=== PATIENT | male | born 1995 | race Hispanic/Latino ===

== ENCOUNTER 2019-09-24 14:23 | Emergency (ER) | payer BC ==
[~2019-09-24] VITALS: Ht 170.2 cm; Wt 72.0 kg
[~2019-09-24 14:23] MED LIST: ALLERGY10 M1 PO; AMOXICILLIN500 MG PO; AMOXICILLIN875 MG PO; AUGMENTIN875TAB PO; CEPHALEXIN500 MG PO; CORTISPORIN OTI10 M2 AS; FLONASE NASAL50 MCG; NAPROSYN500 MG PO; NO HOME MEDS; PAMIX50 MG/ML PO; PHENERGAN12.5 MG/TA PO; ROCEPHIN 2250 MG/VIA IM; ZITHROMAX500 MG PO; ZYRTEC10 M5 PO
[2019-09-24 17:10] VITALS: BP 142/94
== END 2019-09-24 17:16 | disposition home or self-care (01) | DRG 605 ==
LOC: ED 14:23
PROC: 0HQFXZZ Repair Right Hand Skin, External Approach (ICD-10-PCS; principal; 2019-09-24)
DX: S61.214A Laceration without foreign body of right ring finger without damage to nail, initial encounter (principal); S61.216A Laceration without foreign body of right little finger without damage to nail, initial encounter; W25.XXXA Contact with sharp glass, initial encounter; Y93.89 Activity, other specified; Y92.89 Other specified places as the place of occurrence of the external cause; Y99.0 Civilian activity done for income or pay

== ENCOUNTER 2019-11-17 | Emergency (ER) | payer BC ==
[2019-11-17] MEDS ORDERED: BIAXIN500 MG PO (21:13)
[2019-11-17] MEDS ORDERED: NO HOME MEDS (21:50)
== END 2019-11-17 22:02 | disposition home or self-care (01) | DRG 153 ==
DX: J32.9 Chronic sinusitis, unspecified (principal); F17.210 Nicotine dependence, cigarettes, uncomplicated

== ENCOUNTER 2022-09-29 13:57 | Emergency (ER) | payer OTHER, BC ==
[~2022-09-29] VITALS: Ht 170.2 cm; Wt 84.0 kg
[~2022-09-29 13:57] MED LIST changes: +BIAXIN500 MG PO
[2022-09-29] MEDS ORDERED: NAPROXEN500 MG PO (17:11)
[2022-09-29] MEDS ORDERED: METHOCARBAMOL500 MG PO (17:11)
[2022-09-29 17:39] VITALS: BP 149/89
== END 2022-09-29 17:42 | disposition home or self-care (01) | DRG 552 ==
LOC: ED 13:57
DX: S16.1XXA Strain of muscle, fascia and tendon at neck level, initial encounter (principal); F17.200 Nicotine dependence, unspecified, uncomplicated; V49.40XA Driver injured in collision with unspecified motor vehicles in traffic accident, initial encounter

== ENCOUNTER 2022-11-20 13:54 | Emergency (ER) | payer BC ==
[2022-11-20] VITALS (10 sets, daily range): BP systolic 125–145; BP diastolic 77–92
[~2022-11-20] VITALS: Ht 170.2 cm; Wt 84.1 kg
[~2022-11-20 13:54] MED LIST changes: +METHOCARBAMOL500 MG PO; +NAPROXEN500 MG PO
[2022-11-20 14:42] LABS: BASO% 0.4 % (0-3); EOS% 2.8 % (0-8); IMMATURE GRANULOCYTES 0.3 % (0.0-5.0); LYMPH% 24.7 % (15-41); MEAN CORPUSCULAR HGB 23.1 pG CALC (26.0-32.0); MEAN CORPUSCULAR HGB CONC 30.8 g/dL CAL (32.0-36.0); MONO% 10.1 % (2-13); NEUT# 7.31 thou/uL (1.82-7.42); NEUT% 61.7 % (42-76); RED BLOOD COUNT 4.84 mill/uL (4.70-6.10); RED CELL DISTRI WIDTH 19.7 % (11.5-15.5)
[2022-11-20 14:44] LABS: HEMATOCRIT 36.4 % (39.0-50.0); HEMOGLOBIN 11.2 g/dl (14.0-18.0); MEAN CELL VOLUME 75.2 fL CALC (80.0-100.0)
[2022-11-20 14:51] LABS: ALBUMIN 4.7 g/dL (3.2-5.0); ALKALINE PHOSPHATASE 110 u/l (38-126); ANION GAP 12 (6-22 (CALC)); BILIRUBIN, TOTAL 0.3 mg/dL (0.0-1.4); BUN 15 mg/dL (9-20); BUN/CREATININE RATIO 18 (12-20 (CALC)); CARBON DIOXIDE 24 mmol/l (22-30); CHLORIDE 108 mmol/l (95-108); CREATININE 0.8 mg/dL (0.7-1.3); GFR FOR AFR.AMER. > 60 ML/MIN (>=60 (CALC)); GFR OTHER RACES > 60 ML/MIN (>=60 (CALC)); LIPASE 375 u/l (23-300); POTASSIUM 4.3 mmol/l (3.5-5.1); SGOT/AST 31 u/l (17-59); SODIUM 141 mmol/l (137-146); TOTAL PROTEIN 7.7 g/dL (6.3-8.2)
== END 2022-11-20 16:22 | disposition home or self-care (01) | DRG 379 ==
LOC: ED 13:54
PROVIDERS: Family Medicine
DX: K92.1 Melena (principal)

== ENCOUNTER 2023-01-25 22:51 | Emergency (ER) | payer BC ==
[~2023-01-25] VITALS: Ht 170.2 cm; Wt 81.2 kg
[2023-01-26] MEDS ORDERED: AMOXICILLIN500 MG PO (00:36)
[2023-01-26 00:56] VITALS: BP 131/77
== END 2023-01-26 01:38 | disposition home or self-care (01) | DRG 153 ==
LOC: ED 22:51
DX: J02.9 Acute pharyngitis, unspecified (principal); F17.210 Nicotine dependence, cigarettes, uncomplicated; Z20.822 Contact with and (suspected) exposure to COVID-19

== ENCOUNTER 2023-04-11 22:24 | Emergency (ER) | payer BC ==
[2023-04-11] VITALS (7 sets, daily range): BP systolic 121–137; BP diastolic 65–93
[~2023-04-11] VITALS: Ht 170.2 cm; Wt 83.0 kg
[2023-04-11] MEDS ORDERED: AMOXICILLIN500 MG PO (23:37)
== END 2023-04-11 23:55 | disposition home or self-care (01) | DRG 153 ==
LOC: ED 22:24
DX: J02.9 Acute pharyngitis, unspecified (principal); F17.200 Nicotine dependence, unspecified, uncomplicated; Z20.822 Contact with and (suspected) exposure to COVID-19

== ENCOUNTER 2023-06-19 21:29 | Emergency (ER) | payer BC ==
[2023-06-19] VITALS (9 sets, daily range): BP systolic 122–144; BP diastolic 55–89
[~2023-06-19] VITALS: Ht 170.2 cm; Wt 81.0 kg
[2023-06-19] MEDS ORDERED: ULTRAM50 MG PO (23:04)
== END 2023-06-19 23:53 | disposition home or self-care (01) | DRG 605 ==
LOC: ED 21:29
DX: S90.31XA Contusion of right foot, initial encounter (principal); F17.200 Nicotine dependence, unspecified, uncomplicated; W20.8XXA Other cause of strike by thrown, projected or falling object, initial encounter

== ENCOUNTER 2024-05-05 21:38 | Emergency (ER) | payer SELFPAY ==
[~2024-05-05] VITALS: Ht 170.2 cm; Wt 78.9 kg
[~2024-05-05 21:38] MED LIST changes: +AMOX/K CLAV875 M1 PO; +GABAPENTIN100 MG PO; +KENALOG15 GM/TUBE TD; +ULTRAM50 MG PO; +ZPAK PO
[2024-05-05] MEDS ORDERED: IBUPROFEN 600 MG/TAB PO ONE (23:55)
[2024-05-06 00:16] LABS: BASO% 0.4 % (0-3); EOS% 4.3 % (0-8); HEMATOCRIT 40.6 % (39.0-50.0); HEMOGLOBIN 13.1 g/dl (14.0-18.0); IMMATURE GRANULOCYTES 0.6 % (0.0-5.0); LYMPH% 42.3 % (15-41); MEAN CORPUSCULAR HGB 27.2 pG CALC (26.0-32.0); MEAN CORPUSCULAR HGB CONC 32.3 g/dL CAL (32.0-36.0); MONO% 10.9 % (2-13); NEUT# 3.54 thou/uL (1.82-7.42); NEUT% 41.5 % (42-76); RED BLOOD COUNT 4.82 mill/uL (4.70-6.10); RED CELL DISTRI WIDTH 16.8 % (11.5-15.5)
[2024-05-06 00:26] LABS: MEAN CELL VOLUME 84.2 fL CALC (80.0-100.0)
[2024-05-06 01:17] VITALS: BP 138/76
== END 2024-05-06 01:17 | disposition home or self-care (01) | DRG 179 ==
LOC: ED 21:38
PROVIDERS: Family Medicine
DX: U07.1 COVID-19 (principal); R09.81 Nasal congestion; J02.9 Acute pharyngitis, unspecified; R05.9 Cough, unspecified; H92.09 Otalgia, unspecified ear; F17.200 Nicotine dependence, unspecified, uncomplicated

== ENCOUNTER 2024-10-22 21:15 | Emergency (ER) | payer SELFPAY ==
[~2024-10-22] VITALS: Ht 170.2 cm; Wt 81.6 kg
[2024-10-22 21:34] VITALS: BP 143/83
[2024-10-22] MEDS ORDERED: ACETAMINOPHEN 500 MG TAB PO ONE (22:20)
[2024-10-22] MEDS ORDERED: DEXAMETHASONE SOD. PHOSPHATE 10 MG/ML VIAL IM ONE (22:20)
[2024-10-22] MEDS ORDERED: KETOROLAC TROMETHAMINE 15 MG/ML SDV IM ONE (22:20)
[2024-10-22] MEDS ORDERED: CELEBREX200 MG PO (23:31)
[2024-10-22] MEDS ORDERED: DEXAMETHASON6 MG PO (23:36)
[2024-10-22] MEDS ORDERED: LIDODERM5 % EX (23:36)
[2024-10-22 23:46] VITALS: BP 143/83
== END 2024-10-23 00:03 | disposition home or self-care (01) | DRG 552 ==
LOC: ED 21:15
DX: M62.830 Muscle spasm of back (principal); F17.290 Nicotine dependence, other tobacco product, uncomplicated
CPT/HCPCS: J1100; J1885